=== PATIENT | female | born 2000 | race Caucasian/White ===

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

== ENCOUNTER 2024-11-02 21:32 | Emergency (ER) | payer MEDICAID, OTHER ==
[~2024-11-02] VITALS: Ht 154.9 cm; Wt 55.0 kg
[2024-11-02 21:50] VITALS: O2SAT 100
[2024-11-02] MEDS: IBUPROFEN 600MG TABLET PO ONE (22:50)
[2024-11-03 02:06] VITALS: BP 112/72; PULSE 85; RESP 14; TEMP 36.6; O2SAT 100
== END 2024-11-03 02:06 | disposition home or self-care (01) ==
LOC: ER 21:32
DX: S00.83XA Contusion of other part of head, initial encounter (principal); K58.9 Irritable bowel syndrome, unspecified; J45.909 Unspecified asthma, uncomplicated; W22.03XA Walked into furniture, initial encounter; Y93.89 Activity, other specified; Y92.89 Other specified places as the place of occurrence of the external cause; Y99.8 Other external cause status
CPT/HCPCS: 70486; 81025; 99284